=== PATIENT | male | born 1990 | race Caucasian/White ===

== ENCOUNTER 2018-10-31 07:47 | Emergency (ER) | payer BC, OTHER ==
[2018-10-31] MEDS ORDERED: LIDOCAINE 5% (700 MG) TRANSDERMAL ADH..PATCH TP ONE (09:13)
[2018-10-31] MEDS ORDERED: DEXAMETHASONE SOD PHOS INJ 10 MG/1 ML VIAL IM ONE (09:13)
[2018-10-31] MEDS ORDERED: KETOROLAC TROMETHAMINE 60 MG/2 ML SDV IM ONE (09:13)
--- NOTE | 2018-10-31 09:19 | ER Document Report ---
HPI - HPI Patient complains to provider of: neck pain Time Seen by Provider: 10/31/18 08:52 Pain Level: 3 Context: 28-year-old male with hepatitis C on Subutex presents to the emergency department with chief complaint of neck pain since yesterday. Patient was working in an attic and he was pulling some "flex" for his job when it slipped behind him and he reached back to grab it. He said he immediately felt a pop and a shooting pain down his back. Patient states he finished the work day and when he woke up this morning he could not move his neck side to side and was in a position of comfort with his head turned to the left and slightly down. Denies any acute upper extremity weakness/numbness/tingling. Denies any midline cervical or thoracic tenderness. Patient is able to turn his neck side to side with pain and can touch chin to chest and extend his neck. No other complaints Past Medical History - Social History Smoking Status: Current Every Day Smoker Chew tobacco use (# tins/day): No Frequency of alcohol use: None Drug Abuse: None Family History: Reviewed & Not Pertinent Patient has suicidal ideation: No Patient has homicidal ideation: No Renal/ Medical History: Denies: Hx Peritoneal Dialysis Vertical Provider Document - CONSTITUTIONAL Notes: PHYSICAL EXAMINATION: Reviewed vital signs and charting by RN GENERAL: Alert, interacts well. No acute distress. HEAD: Normocephalic, atraumatic. EYES: Pupils equal and round. Extraocular movements intact. ENT: Oral mucosa moist, tongue midline. NECK: Full range of motion. Trachea midline. No midline cervical or thoracic tenderness, tenderness to palpation of the upper trapezius and scalene muscles worse on the right side LUNGS: Clear to auscultation bilaterally, no wheezes, rales, or rhonchi. No respiratory distress. HEART: Regular rate and rhythm. No murmur ABDOMEN: soft, non-tender. No distention. Bowel sounds present EXTREMITIES: Moves all 4 extremities spontaneously. No edema, No cyanosis. PSYCH: Normal affect, normal mood. SKIN: Warm, dry, normal turgor. No rashes or lesions noted. - INFECTION CONTROL TRAVEL OUTSIDE OF THE [place] IN LAST 30 DAYS: No Course - Re-evaluation Re-evalutation: 10/31/18 09:20 Overall well-appearing, no red flags concerning for surgical consultation. 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 No midline cervical tenderness or no midline thoracic t enderness. Plan is to treat symptomatically and patient has been given strict return precautions and discharge instructions. He is stable for discharge. - Vital Signs Vital signs: Temp Pulse Resp BP Pulse Ox 98.0 F 86 20 149/64 H 97 10/31/18 07:52 10/31/18 07:52 10/31/18 07:52 10/31/18 07:52 10/31/18 07:52 Discharge - Discharge Clinical Impression: Cervical strain, acute Qualifiers: Encounter type: initial encounter Qualified Code(s): S16.1XXA - Strain of muscle, fascia and tendon at neck level, initial encounter Condition: Good Disposition: HOME, SELF-CARE Additional Instructions: Your pain is most likely related to impingement one of your cervical nerve roots due to a muscle strain and will take several weeks to completely resolve. For your pain: Take ibuprofen 600 mg every 6 hours as needed for pain. In addition to this, purchased the product that is sold [id number] cold Aspercreme with lidocaine. Apply to the affected area per bottle instructions. You should also apply heat to the area regularly using an electric heating plant pad. Return to the emergency department immediately if you develop weakness, loss of sensation, chest pain, shortness of breath, have worsening of your symptoms, or any other symptoms that are worrisome to you. Forms: Return to Work
[2018-10-31 10:59] VITALS: BP 146/65
== END 2018-10-31 10:59 | disposition home or self-care (01) ==
LOC: ER 07:47
DX: S16.1XXA Strain of muscle, fascia and tendon at neck level, initial encounter (principal); F17.200 Nicotine dependence, unspecified, uncomplicated; X50.0XXA Overexertion from strenuous movement or load, initial encounter; Y92.008 Other place in unspecified non-institutional (private) residence as the place of occurrence of the external cause; Y99.0 Civilian activity done for income or pay
CPT/HCPCS: 99283; 96372; J1885; J1100